=== PATIENT | male | born 1995 | race African-American/Black ===

== ENCOUNTER 2016-08-28 14:06 | Emergency (ER) | payer SELFPAY ==
--- NOTE | 2016-08-28 14:41 | ER Document Report ---
ED Medical Screen (RME) - General Stated Complaint: LEG PAIN Notes: Right ankle pain for several hours.I greeted and performed a rapid initial assessment of this patient. Comprehensive ED assessment and evaluation of the patient, analysis of test results and completion of the medical decision making process will be conducted by additional ED providers. - Related Data Allergies/Adverse Reactions: dairy Allergy (Unknown, Uncoded 12/01/12 10:16) Past Medical History Pulmonary Medical History: Denies: Hx Asthma - Immunizations Hx Diphtheria, Pertussis, Tetanus Vaccination: Yes
--- NOTE | 2016-08-28 15:26 | ER Document Report ---
ED Extremity Problem, Lower - General Time seen by provider: 15:10 Mode of Arrival: Ambulatory Information source: Patient, [facility] Records TRAVEL OUTSIDE OF THE [place] IN LAST 30 DAYS: No <DEE CONN - Last Filed: 08/28/16 15:30> <JOSE ROBERTS - Last Filed: 08/28/16 18:05> - General Chief Complaint: Ankle Pain Stated Complaint: LEG PAIN Notes: This 21-year-old male patient comes emergent complaining of pain in the right Achilles tendon Region. He states he was playing football about 12:30 PM today , when he either pulled, strained, twisted or got kicked in the right Achilles tendon region. He is not sure exactly what happened. He has pain in the Achilles tendon extending up into the calf muscle. He denies injury or pain to the ankle itself. (DEE CONN) - Related Data Allergies/Adverse Reactions: dairy Allergy (Unknown, Uncoded 08/28/16 14:42) Past Medical History - General Information source: Patient, [facility] Records - Social History Smoking Status: Never Smoker Cigarette use (# per day): No Chew tobacco use (# tins/day): No Smoking Education Provided: No Frequency of alcohol use: None Drug Abuse: None Lives with: Friend Family History: Reviewed & Not Pertinent Patient has suicidal ideation: No Patient has homicidal ideation: No - Medical History Medical History: Negative Surgical Hx: Negative - Immunizations Hx Diphtheria, Pertussis, Tetanus Vaccination: Yes <DEE CONN - Last Filed: 08/28/16 15:30> Review of Systems - Review of Systems Constitutional: No symptoms reported EENT: No symptoms reported Cardiovascular: No symptoms reported Respiratory: No symptoms reported Gastrointestinal: No symptoms reported Genitourinary: No symptoms reported Musculoskeletal: See HPI Skin: No symptoms reported Hematologic/Lymphatic: No symptoms reported Neurological/Psychological: No symptoms reported <DEE CONN - Last Filed: 08/28/16 15:30> Physical Exam - Vital signs Interpretation: Normal - General General appearance: Appears well, Alert In distress: None - HEENT Head: Normocephalic, Atraumatic Eyes: Normal Pupils: PERRL Neck: Normal - Respiratory Respiratory status: No respiratory distress - Cardiovascular Rhythm: Regular - Abdominal Inspection: Normal - Back Back: Normal - Extremities General upper extremity: Normal inspection General lower extremity: Other - The right Achilles tendon is tender a few centimeters above the insertion at the ankle, and again a few centimeters above that prior to bending into the calf muscle is quite tender with some swelling. There is no bruising seen at this time. Dorsiflexing the foot causes more pain in the mid-Achilles tendon going up toward the calf that it does in the distal Achilles tendon. The ankle is not tender or swollen. - Neurological Neuro grossly intact: Yes - Psychological Associated symptoms: Normal affect, Normal mood - Skin Skin Temperature: Warm Skin Moisture: Dry Skin Color: Normal <DEE CONN - Last Filed: 08/28/16 15:30> Course - Transfer of Care Care transferred to following provider: Dr. Roberts <DEE CONN - Last Filed: 08/28/16 15:30> <JOSE ROBERTS - Last Filed: 08/28/16 18:05> - Re-evaluation Re-evalutation: 08/28/16 15:29 Imaging options were discussed with the radiologist cleaning validation consultant and noncontrasted MRI of the Achilles tendon was recommended. (DEE CONN) 08/28/16 18:04 Full-thickness tear noted on MR, patient will be splinted in sent to orthopedics for reevaluation After performing a Medical Screening Examination, I estimate there is LOW risk for INTRACRANIAL HEMORRHAGE, UNSTABLE SPINE FRACTURE, CENTRAL CORD SYNDROME, CAUDA EQUINA, THORACIC AORTIC DISSECTION, PNEUMOTHORAX, PERFORATED BOWEL, RUPTURED ABDOMINAL AORTIC ANEURYSM, ACUTE TENDON RUPTURE, COMPARTMENT SYNDROME, or OPEN FRACTURE, thus I consider the discharge disposition reasonable. Also, there is no evidence or peritonitis, sepsis, or toxicity. The patient and I have discussed the diagnosis and risks, and we agree with discharging home to follow-up with their primary doctor with the understanding that symptoms and presentations can change. We also discussed returning to the Emergency Department immediately if new or worsening symptoms occur. We have discussed the symptoms which are most concerning (e.g., bloody stool, fever, changing or worsening pain, vomiting) that necessitate immediate return. (JOSE ROBERTS) - Vital Signs Vital signs: Temp Pulse Resp BP Pulse Ox 98.2 F 108 H 16 154/81 H 98 08/28/16 14:40 08/28/16 14:40 08/28/16 14:40 08/28/16 14:40 08/28/16 14:40 (DEE CONN) (JOSE ROBERTS) - Transfer of Care Notes: 08/28/16 15:23 Disposition pending MRI result. (DEE CONN) Procedures - Immobilization Right Ankle Time completed: 18:04 Pre-Proc Neuro Vasc Exam: Normal Immobilizer type: Short Leg Posterior Performed by: PCT Post-Proc Neuro Vasc Exam: Normal Alignment checked and good: Yes <JOSE ROBERTS - Last Filed: 08/28/16 18:05> Discharge <DEE CONN - Last Filed: 08/28/16 15:30> <JOSE ROBERTS - Last Filed: 08/28/16 18:05> - Discharge Clinical Impression: Elevated blood pressure reading Injury of right Achilles tendon Qualifiers: Encounter type: initial encounter Qualified Code(s): S86.001A - Unspecified injury of right Achilles tendon, initial encounter Condition: Stable Disposition: HOME, SELF-CARE Prescriptions: Hydrocodone/Acetaminophen [[place] 5-325 mg Tablet] 1 tab PO Q6 #14 tablet Referrals: HUBER POZO MD [ACTIVE STAFF] - Follow up tomorrow
[2016-08-28 19:12] VITALS: BP 137/89
== END 2016-08-28 18:50 | disposition home or self-care (01) ==
LOC: ER 14:06
PROC: 2W3QX1Z Immobilization of Right Lower Leg using Splint (ICD-10-PCS; principal; 2016-08-28)
DX: S86.011A Strain of right Achilles tendon, initial encounter (principal); X58.XXXA Exposure to other specified factors, initial encounter; Y93.61 Activity, american tackle football; R03.0 Elevated blood-pressure reading, without diagnosis of hypertension
CPT/HCPCS: 99284